=== PATIENT | male | born 1960 | race Caucasian/White ===

== ENCOUNTER 2017-02-21 09:45 | Day surgery (SDC) | payer OTHER ==
[2017-02-17 14:54] LABS: BASOPHILS 0.6 %; BASOPHILS ABSOLUTE 0.04 10/3/uL (0.0-0.16); EOSINOPHILS 1.3 %; EOSINOPHILS ABSOLUTE 0.09 10/3/uL (0.0-0.53); HEMATOCRIT 44.1 % (40.0-51.0); HEMOGLOBIN 15.6 g/dL (13.6-17.8); IMMATURE GRANULOCYTES 0.3 %; IMMATURE GRANULOCYTES ABSOLUTE 0.02 10/3/uL (0.0-0.11); LYMPHOCYTES 29.1 %; LYMPHOCYTES ABSOLUTE 2.04 10/3/uL (0.67-4.30); MANUAL DIFF NO %; MEAN CORPUS HGB CONC 35.4 g/dL (32.0-36.0); MEAN CORPUSCULAR HEMOGLOB 28.6 pg (26.0-34.0); MEAN CORPUSCULAR VOLUME 80.8 fL (80-100); MEAN PLATELET VOLUME 9.2 fL (9.2-13.0); MONOCYTES 4.3 %; NEUTROPHILS 64.4 %; NEUTROPHILS ABSOLUTE 4.52 10/3/uL (2.02-8.40); PLATELET COUNT 231 10/3/uL (150-400); RBC DISTRIBUTION WIDTH 13.3 % (12.0-16.0); RED CELL COUNT 5.46 10/6/uL (4.7-6.1)
[2017-02-17 15:19] LABS: A/G RATIO 1.7 (0.7-1.9); ALBUMIN 4.3 G/DL (3.5-5.0); BUN (BLOOD UREA NITROGEN) 15 MG/DL (6-23); CALCIUM, SERUM 9.2 MG/DL (8.5-10.4); CHLORIDE, SERUM 110 MMOL/L (96-112); CO2 (CARBON DIOXIDE) 29 MMOL/L (24-34); GLOBULIN 2.6 G/DL (2.5-4.1); GLUCOSE, SERUM 84 MG/DL (60-99); POTASSIUM, SERUM 4.1 MMOL/L (3.5-5.3); SGOT(AST) 16 U/L (5-40); SGPT(ALT) 35 U/L (5-65); SODIUM, SERUM 145 MMOL/L (135-148); TOTAL BILIRUBIN 0.7 MG/DL (0-1.2); TOTAL PROTEIN 6.9 G/DL (6.0-8.5)
[2017-02-17 15:21] LABS: ALKALINE PHOSPHATASE 64 U/L (45-117); CREATININE 1.39 MG/DL (0.70-1.30); GFR AFRICAN AMERICAN 66 ML/MIN (>=60); GFR NON AFRICAN AMERICAN 57 ML/MIN (>=60)
--- NOTE | ~2017-02-21 | OP ---
Record Of Operation [facility] [address] [place]. [address] NAME: HALEY HOWARD : 64 STATUS : [facility] UNIT#: [id number] AGE: 56 ADM/REG DATE : 02/21/17 MR#: [id number] REPORT SERV DATE: 02/21/17 DICTATED BY: CATIE JOSÉ III DATE: 02/21/17 REPORT STATUS : Draft TRANSCRIBED BY: ALKA DATE: 02/21/17 DATE OF PROCEDURE: 02/21/2017 PREOPERATIVE DIAGNOSIS: Symptomatic recurrent right inguinal hernia. POSTOPERATIVE DIAGNOSIS: Symptomatic recurrent right inguinal hernia, recurrent direct right inguinal hernia, PROCEDURE: Open right inguinal hernia repair, Rola technique, with Prolene mesh. ANESTHESIA: General with intubation. COMPLICATIONS: None. ESTIMATED BLOOD LOSS: Less than 5 mL. SPECIMENS: None. DRAINS: None. LAP AND SPONGE COUNT: Correct x3. BRIEF HISTORY: This 56-year-old male presented with a recurrent symptomatic and fairly large right inguinal hernia. It was felt that open right inguinal hernia repair was indicated. On this procedure, the risks, benefits, and alternatives, including but not limited to the risk for bleeding, infection, pain, swelling, scarring, deformity to the area, seroma formation, hematoma formation, recurrence of the hernia, nerve injury, chronic paresthesia, pain in the thighs, scrotum, or groin, chronic neuralgia or neuroma, and unforeseen complications including deep venous thrombosis, pulmonary embolus, myocardial infarction, stroke, pneumonia, and , were fully explained to the patient prior to surgery. The expected length of recovery was explained. The patient had questions, which were answered. He fully understood the risks and agreed to the surgery as planned. DESCRIPTION OF PROCEDURE: After being properly identified and after discussing the risks of surgery with him again in the preoperative area and after identifying the hernia with him in the preoperative area, the patient was taken to the operating room and placed in the supine position on the operating room table. General anesthesia was administered and he was intubated without difficulty. The abdomen and groins were prepped and draped sterilely in the usual fashion. After an appropriate "time-out" per [employer] standards, a small oblique incision was made in the right groin from the pubic tubercle medially towards the anterior- superior iliac spine laterally. The incision was continued through the subcutaneous tissue. Hemostasis was controlled with cautery. There was extensive scarring in the area. The external oblique fascia was identified. This fascia was opened along the direction of its fibers, so as to open the external inguinal ring. Using sharp dissection, the underlying ilioinguinal and genitofemoral nerves were identified. These were carefully isolated and protected to one side. Using sharp dissection, the spermatic cord and its contents were Record Of Operation [address] [address] NAME: HALEY HOWARD : 64 STATUS : [facility] PAT#: [id number] AGE: 56 ADM/REG DATE : 02/21/17 MR#: [id number] REPORT SERV DATE: 02/21/17 DICTATED BY: CATIE JOSÉ III DATE: 02/21/17 REPORT STATUS : Draft TRANSCRIBED BY: ALKA DATE: 02/21/17 mobilized from the floor of the canal. A Whitehouse drain was placed around the spermatic cord. The hernia was noted to be dissecting through the floor of the canal, medial to the internal ring. This was a direct hernia. The spermatic cord was skeletonized and it was noted that there was no indirect component to the hernia. Using sharp dissection, the hernia was dissected free from the surrounding tissues. It was reduced back into the abdominal cavity. The fascial defect was reapproximated with interrupted 2-0 silk sutures, which were placed between shelving edge of the inguinal ligament laterally and the medial edge of the internal oblique and transversalis fascia medially. This resulted in good closure of the defect with minimal tension. A Prolene mesh was then selected and cut to the appropriate size for the floor of the canal. A slit was made in the mesh laterally to incorporate the spermatic cord. The mesh was then secured to the floor of the canal with a running 2-0 Prolene suture, which was placed between the edge of the mesh and shelving edge of the inguinal ligament laterally and the edge of the mesh and the internal oblique and transversalis fascia medially. The mesh was secured lateral to the cord as well. Upon completion of this, the mesh lay nicely on the floor of the canal. It was not twisted or kinked in any way. It was not under any tension. A small finger could be placed through the internal ring so that the spermatic vessels had not been unduly tightened or narrowed. Hemostasis was assured. The external oblique fascia was closed with running 2-0 silk suture. The subcutaneous tissue was closed with a running 3-0 chromic suture. The skin was closed with a running subcuticular 4-0 Monocryl stitch. The incision was injected with 0.5% Marcaine. Dressings were applied. Anesthesia was reversed. The patient was taken to recovery room in stable condition. He tolerated the procedure well. His family was informed of the results of surgery. The patient will be discharged when stable and comfortable and able to void and ambulate. His family was advised to keep his wound clean and dry for [address] hours[address] He should not drive for three-four days after surgery or while using narcotics and that he should resume his usual medications. He was asked to return in two weeks for followup or sooner if any fever chills, wound drainage, or other problems prior to that time. He is advised not to perform any lifting for four-five weeks. He was asked to return in two weeks for followup or sooner if any fever, chills, wound drainage, or other problems prior to that time. He was given a prescription for Percocet 7.5 one t.i.d., #12, as needed for pain, which he was advised not to use while driving. DERICK/ALKA Catie José III, M.D. / [id number] CC: Reji Etienne III, ROBERT ALAN
--- NOTE | ~2017-02-21 | PREOPHP ---
PreOp History and Physical [place] [id number] [place]. [address] NAME: HALEY HOWARD : 64 STATUS : [facility]#: [id number] AGE: 56 ADM/REG DATE : 02/21/17 MR#: [id number] REPORT SERV DATE: 02/22/17 DICTATED BY: CATIE JOSÉ III DATE: 02/15/17 REPORT STATUS : Draft TRANSCRIBED BY: ALKA DATE: 02/15/17 HISTORY OF PRESENT ILLNESS: This 56-year-old male comes to the operating room for open repair of symptomatic recurrent right inguinal hernia. The patient has recurrent right inguinal hernia. He noticed this in May of last year. Recently, it has become larger and symptomatic in terms of local pain and discomfort. The patient has had no nausea, vomiting, or obstructive symptoms. He comes to the operating room now for open repair of this hernia. PAST MEDICAL HISTORY: Hyperlipidemia. MEDICATIONS: Claritin. PAST SURGICAL HISTORY: Includes appendectomy and right inguinal hernia repair. FAMILY HISTORY: Positive for diabetes and heart disease. SOCIAL HISTORY: No history of tobacco or alcohol use. ALLERGIES: NONE. REVIEW OF SYSTEMS: The patient complains of pain in his right groin and back pain. His 14-point review of systems is otherwise unremarkable. PHYSICAL EXAMINATION: GENERAL: Reveals an obese male, in no acute distress. He is alert and oriented x3. VITAL SIGNS: Blood pressure 120/73, pulse 90, temperature 97.6. HEENT: Unremarkable. Cranial nerves 2 through 12 were normal. LUNGS: Clear. CARDIAC: Normal. ABDOMEN: Soft, nontender. The right groin has a large inguinal hernia. This is reducible. ASSESSMENT: 1. 56-year-old male with symptomatic recurrent large right inguinal hernia. 2. Obesity. 3. Hyperlipidemia. PLAN: The patient comes to the operating room now for open right inguinal hernia repair. This procedure, the risks, benefits, and alternatives, including not limited to the risk for bleeding, infection, pain, swelling, scarring, deformity of the area, seroma formation, hematoma formation, recurrence of the hernia, nerve injury, chronic paresthesia, pain in the thigh, scrotum, or groin, chronic neuralgia or neuroma, and unforeseen complications including deep venous thrombosis, pulmonary embolus, myocardial infarction, stroke, pneumonia, and , have been explained to the patient prior to surgery. The expected length of recovery has been explained. The patient's questions have been answered. He understands the risks and agrees to surgery as planned. PreOp History and Physical [place] [address] [place] [address] NAME: HALEY HOWARD : 64 STATUS : [facility]#: [id number] AGE: 56 ADM/REG DATE : 02/21/17 MR#: [id number] REPORT SERV DATE: 02/22/17 DICTATED BY: CATIE JOSÉ III DATE: 02/15/17 REPORT STATUS : Draft TRANSCRIBED BY: ALKA DATE: 02/15/17 Jennifer/ALKA Catie José III, M.D. / [id number]
[~2017-02-21 09:45] MED LIST: B12250T PO; CLARIT10 PO; CO Q-10100 MG PO; IBU-200200 MG PO; MULTIPLE VIT PO; VITAMIN D31000 UNIT PO; VITC500 PO; ZINC TAB PO
== END 2017-02-21 17:26 | disposition home or self-care (01) ==
LOC: SDC 09:45
PROVIDERS: Surgery
PROC: 0YU50JZ Supplement Right Inguinal Region with Synthetic Substitute, Open Approach (ICD-10-PCS; principal; 2017-02-21 11:30)
DX: K40.91 Unilateral inguinal hernia, without obstruction or gangrene, recurrent (principal); E78.5 Hyperlipidemia, unspecified; E66.9 Obesity, unspecified; Z90.49 Acquired absence of other specified parts of digestive tract; Z98.890 Other specified postprocedural states; Z82.49 Family history of ischemic heart disease and other diseases of the circulatory system; Z83.3 Family history of diabetes mellitus; Z68.27 Body mass index [BMI] 27.0-27.9, adult; Z79.1 Long term (current) use of non-steroidal anti-inflammatories (NSAID); Z79.899 Other long term (current) drug therapy
CPT/HCPCS: 71020; 80053; 85025; 93005; A9270-GY; C1781; J0690; J1170; J2250; J2270; J2370; J2405; J2710; J3010